=== PATIENT | female | born 1975 | race African-American/Black ===

== ENCOUNTER 2017-02-16 08:29 | Emergency (ER) | payer SELFPAY ==
[~2017-02-16] VITALS: Ht 165.1 cm; Wt 80.3 kg
[2017-02-16 08:38] VITALS: BP 111/73
[2017-02-16] MEDS ORDERED: ACET-704 PO (09:19)
[2017-02-16] MEDS ORDERED: CLIN150C14 PO (09:19)
--- NOTE | 2017-02-16 09:19 | PHYS DOC ---
Past Medical History Past Medical History: Anemia Past Surgical History: Appendectomy, Cholecystectomy, Tonsillectomy, Tubal ligation Alcohol Use: Rarely Drug Use: Marijuana Adult General Chief Complaint Chief Complaint: DENTAL PROBLEM HPI HPI Patient is a 41 year old female who presents today complaining of moderate right upper jaw dental pain that began 5 days ago. Patient denies any fever or trismus. She states she follows up with the dental school. Review of Systems Review of Systems Constitutional: Denies fever or chills [] Eyes: Denies change in visual acuity, redness, or eye pain [] HENT: right upper jaw dental pain Musculoskeletal: Denies back pain or joint pain [] Integument: Denies rash or skin lesions [] Neurologic: Denies headache, focal weakness or sensory changes [] Allergies Allergies Allergies Coded Allergies Type Severity Reaction Last Updated Verified Penicillins Allergy Intermediate Hives 02/16/17 No aspirin Allergy Intermediate 02/16/17 No Physical Exam Physical Exam Constitutional: Well developed, well nourished, no acute distress, non-toxic appearance. [] HENT: Normocephalic, atraumatic, bilateral external ears normal, oropharynx moist, no oral exudates, nose normal. [] Small dental abscess is noted on the gumline of tooth #3 and 4. The abscess is fluctuant with gum erythema. A little pressure on the abscess it opened up and started draining Moderate amount of yellow bloody material Abdomen: Bowel sounds normal, soft, no tenderness, no masses, no pulsatile masses. [] Skin: Warm, dry, no erythema, no rash. [] Back: No tenderness, no CVA tenderness. [] Extremities: No tenderness, no cyanosis, no clubbing, ROM intact, no edema. [] Neurologic: Alert and oriented X 3, normal motor function, normal sensory function, no focal deficits noted. [] Psychologic: Affect normal, judgement normal, mood normal. [] Current Patient Data Vital Signs Vital Signs Date Time Temp Pulse Resp B/P (MAP) Pulse Ox O2 Delivery O2 Flow Rate FiO2 02/16/17 08:38 97.6 66 18 97 Room Air 97.6 EKG EKG [] Radiology/Procedures Radiology/Procedures [] Course & Med Decision Making Course & Med Decision Making Pertinent Labs and Imaging studies reviewed. (See chart for details) Patient has an abscess on the right upper gum that opened up and started draining in the ED. She was discharged with clindamycin and Tylenol 3. She is to follow-up with her dentist in the next 1-2 weeks. Neha Disclaimer Neha Disclaimer This electronic medical record was generated, in whole or in part, using a voice recognition dictation system. Departure Departure Impression: Primary Impression: Dental abscess Additional Impression: Dentalgia Disposition: 01 HOME, SELF-CARE Condition: STABLE Referrals: NO PCP (PCP) Follow-up with your dentist as soon as possible Patient Instructions: Dental Abscess, Dental Pain, [id number] Additional Instructions: You were seen for dental abscess that opened up and is draining. Rinse your mouth with salt water 2 or 3 times a day. Complete your antibiotics. Follow-up with your dentist as soon as possible. Scripts Clindamycin Hcl (CLINDAMYCIN HCL) 150 Mg Capsule 3 CAP PO TID, #90 CAP Prov: ERICA CROWLEY APRN 02/16/17 Acetaminophen With Codeine (TYLENOL WITH CODEINE #3 TABLET) 1 Each Tablet 1 TAB PO PRN Q4HRS Y for PAIN, #20 TAB Prov: ERICA CROWLEY APRN 02/16/17 Problem Qualifiers ERICA CROWLEY APRN Feb 16, 2017 09:19
== END 2017-02-16 09:29 | disposition home or self-care (01) ==
LOC: ER 08:29
DX: K04.7 Periapical abscess without sinus (principal); Z88.0 Allergy status to penicillin; Z88.6 Allergy status to analgesic agent; Z90.49 Acquired absence of other specified parts of digestive tract
CPT/HCPCS: 99283

== ENCOUNTER 2020-06-23 10:34 | Emergency (ER) | payer OTHER ==
[~2020-06-23] VITALS: Ht 172.7 cm; Wt 90.0 kg
[~2020-06-23 10:34] MED LIST: ACET-704 PO; CLIN150C14 PO
[2020-06-23 10:54] VITALS: BP 126/80
[2020-06-23] MEDS: ACETAMINOPHEN/CODEINE 300/30MG TABLET. PO ONE (11:02)
[2020-06-23] MEDS ORDERED: HYDR-3164 PO (11:05)
[2020-06-23] MEDS ORDERED: DOXY100C2 PO (11:05)
--- NOTE | 2020-06-23 11:07 | PHYS DOC ---
Past Medical History Past Medical History: Anemia Past Surgical History: Appendectomy, Cholecystectomy, Tonsillectomy, Tubal ligation Smoking Status: Current Every Day Smoker Alcohol Use: Rarely Drug Use: Marijuana General Adult EDM: Chief Complaint: LACERATION/AVULSION HPI: HPI: Patient is a 45 year old female who presents with last night had been drinking and was trying to open the package of steaks with a knife when the knife slipped and it cut the left palm of her hand causing a superficial laceration. Patient states was approximately 1:00 this morning. She states she went to bed and woke up in her hand is now painful and 1+ swollen. Patient denies numbness or tingling, laxity in any joints of the hand, weakness in the extremity. Patient has a history of appendectomy, cholecystectomy, smoker, tubal ligation, tonsillectomy, anemia. She rates her pain a 10 out of 10 and has not taken any medication for the pain. Review of Systems: Review of Systems: Constitutional: Denies fever or chills. [] Eyes: Denies change in visual acuity. [] HENT: Denies nasal congestion or sore throat. [] Respiratory: Denies cough or shortness of breath. [] Cardiovascular: Denies chest pain or +left hand 1+ edema. [] GI: Denies abdominal pain, nausea, vomiting, bloody stools or diarrhea. [] : Denies dysuria. [] Musculoskeletal: Denies back pain or joint pain. + Left hand pain [] Integument: Denies rash. +Left palm of hand upper superficial laceration [] Neurologic: Denies headache, focal weakness or sensory changes. [] Endocrine: Denies polyuria or polydipsia. [] Lymphatic: Denies swollen glands. [] Psychiatric: Denies depression or anxiety. [] Heart Score: Risk Factors: Risk Factors: DM, Current or recent (<one month) smoker, HTN, HLP, family history of CAD, obesity. Risk Scores: Score 0 - 3: 2.5% MACE over next 6 weeks - Discharge Home Score 4 - 6: 20.3% MACE over next 6 weeks - Admit for Clinical Observation Score 7 - 10: 72.7% MACE over next 6 weeks - Early Invasive Strategies Allergies: Allergies: Allergies Coded Allergies Type Severity Reaction Last Updated Verified Penicillins Allergy Intermediate Hives 02/16/17 No aspirin Allergy Intermediate 02/16/17 No Physical Exam: PE: Constitutional: Well developed, well nourished, no acute distress, non-toxic appearance. [] HENT: Normocephalic, atraumatic, bilateral external ears normal, oropharynx moist, no oral exudates, nose normal. [] Eyes: PERRLA, EOMI, conjunctiva normal, no discharge. [] Neck: Normal range of motion, no tenderness, supple, no stridor. [] Cardiovascular:Heart rate regular rhythm, no murmur [] Lungs & Thorax: Bilateral breath sounds clear to auscultation [] Abdomen: Bowel sounds normal, soft, no tenderness, no masses, no pulsatile reji s. [] Skin: Warm, dry, no erythema, no rash. Left hand 7.5 cm superficial laceration with approximated edges [] Back: No tenderness, no CVA tenderness. [] Extremities: No tenderness, no cyanosis, no clubbing, ROM intact, left hand 1+ edema. [] Neurologic: Alert and oriented X 3, normal motor function, normal sensory function, no focal deficits noted. [] Psychologic: Affect normal, judgement normal, mood normal. [] EKG: EKG: [] Radiology/Procedures: Radiology/Procedures: [] Impression: [facility] [address] [place] [address] IMAGING REPORT Signed PATIENT: WAYNE JOHNSON MACCOUNT: [id number] : 1975 LOCATION: ER AGE: 45 SEX: F EXAM STATUS: REG ER ORD. PHYSICIAN: PAPITO BENDER APRN REASON: LACERATION ON PALM OF HAND PROCEDURE: HAND LEFT 3V XR HAND_LEFT 3 VIEWS 06/23/2020 10:55 AM INDICATION: Laceration on palm of hand COMPARISON: None available. TECHNIQUE: 3 views of the left hand are provided. FINDINGS/ IMPRESSION: There is no acute fracture or dislocation. Joint spaces are maintained. Bone mineralization is within normal limits. Soft tissue laceration is poorly visualized limits. There is no soft tissue gas or osseous erosion. No radiopaque foreign body. Electronically signed by: Danny Pardo MD (06/23/2020 11:13 AM) [facility] DICTATED and SIGNED BY: DANNY PARDO MD DATE: 06/23/20 [id number] 0 Course & Med Decision Making: Course & Med Decision Making Pertinent Labs and Imaging studies reviewed. (See chart for details) See HPI. Patient has a superficial laceration that extends across the mid palm of the left hand with edges approximated and healed together. The very end of the laceration about 1 inch of it looks to be slightly deeper than the superficial but is not gaping open and is healing together. There is no disc harge coming from the wound. Radial pulses strong present. Cap refill less than 2 seconds. Skin pink warm and dry. Alert and oriented x4. There is 1+ swelling to the hand generalized. Patient does have control of the hand and full range of motion and can make a fist and open the hand although it is painful when she opens the fist due to stretching. No cellulitis. Tetanus is given in the ED. Patient was not given Rocephin or Keflex to go on as she has a anaphylactic reaction to penicillins. Patient will be placed on doxycycline and placed in a velco wrist splint. She can follow up in 48 hours for a wound recheck. Laceration repair Location: Left mid palm of hand at 7.5 cm Local anesthesia: None Interrupted sutures/Internal sutures: Dermabond and Steri-Strips Nerve/ligament/muscle damage: None Cleaning and irrigation: Chlorhexidine The appropriate timeout was taken. The area was prepped and draped in the usual sterile fashion. The wound was copiously irrigated with normal saline and chlorhexidine. Patient tolerated well without complication. Dressing was applied to the area follow-up education is given to observe for signs and symptoms of infection, bleeding and to follow-up promptly if these occur. Patient can return in 48 hours for a wound recheck. Sutures to be removed in 7 to 10 days. [] Neha Disclaimer: Neha Disclaimer: This electronic medical record was generated, in whole or in part, using a voice recognition dictation system. Departure Departure Impression: Primary Impression: Laceration Disposition: 01 DC HOME SELF CARE/HOMELESS Condition: STABLE Referrals: NO PCP (PCP) Patient Instructions: Laceration Care, Adult Additional Instructions: Keep hand elevated to keep swelling down. You can also keep ice on the area. If swelling continues to increase with redness and severe pain return to the emergency room. You should return to the emergency room in 48 hours or see your doctor for a wound recheck. Take the antibiotic as prescribed and with food. Scripts Hydrocodone/Apap 5-325 (NORCO 5-325 TABLET) 1 Each Tablet 1 TAB PO PRN Q6HRS PRN for PAIN, #10 TAB 0 Refills Prov: PAPITO BENDER APRN 06/23/20 Doxycycline Hyclate (DOXYCYCLINE HYCLATE) 100 Mg Capsule 1 CAP PO BID, #20 CAP Prov: PAPITO BENDER [employer] 06/23/20 PAPITO BENDER APRN Jun 23, 2020 11:07
--- NOTE | 2020-06-23 11:15 | RAD ---
XR HAND_LEFT 3 VIEWS 06/23/2020 10:55 AM INDICATION: Laceration on palm of hand COMPARISON: None available. TECHNIQUE: 3 views of the left hand are provided. FINDINGS/ IMPRESSION: There is no acute fracture or dislocation. Joint spaces are maintained. Bone mineralization is within normal limits. Soft tissue laceration is poorly visualized limits. There is no soft tissue gas or os seous erosion. No radiopaque foreign body. Electronically signed by: Jahaira Pardo MD (06/23/2020 11:13 AM) [facility]
[2020-06-23] MEDS: DIPH,PERTUSS(ACELL),TET VAC/PF 0.5 ML SYRINGE. VAX IM ONE (11:28)
== END 2020-06-23 11:33 | disposition home or self-care (01) ==
LOC: ER 10:34
DX: S61.412A Laceration without foreign body of left hand, initial encounter (principal); F17.200 Nicotine dependence, unspecified, uncomplicated; Z88.0 Allergy status to penicillin; Z88.6 Allergy status to analgesic agent; W26.0XXA Contact with knife, initial encounter; Y93.89 Activity, other specified; Y92.89 Other specified places as the place of occurrence of the external cause; Y99.8 Other external cause status
CPT/HCPCS: 12002; 73130; 90471; 90715; 99284